=== PATIENT | female | born 1945 | race Hispanic/Latino ===

== ENCOUNTER → 2024-11-04 | Outpatient (CLI) | payer OTHER ==
[~2024-11-04] MED LIST: GADOTERATE MEGLUMINE 5 MMOL/10 ML VIAL IV ONE
--- NOTE | 2024-11-04 10:49 | HMCIMG ---
Exam Type: MRI of the pelvis with and without gadolinium Technique: Examination is done with multiecho multiplanar sequences, with and without fat saturation, before and after contrast administration. Findings: There is a mass arising from the rectum predominantly the right wall, with a cephalocaudal span of 5.7 cm with a maximum thickness of approximately 3 cm. The mass has circumferential involvement of the rectum and the entire involved area of rectal wall measures at least [address] No lymphadenopathy is seen. No additional masses are identified. There is no evidence of metastatic disease to the skeletal structures there are no other significant soft tissue abnormalities. IMPRESSION: Rectal mass as noted.
--- NOTE | 2024-11-04 11:01 | HMCIMG ---
THYROID ULTRASOUND History: Lymph nodes Comparison: None Findings: Multiple bilateral nodules are seen. Right thyroid lobe shows hypoechoic nodules of the upper pole measuring 8, 9 and 5 mm, as well as 2 hypoechoic interpolar nodules measuring 3 and 10 mm respectively. Multiple simple cysts of the upper aspect of the right lobe and the left lobe are seen. The left side shows hypoechoic upper pole nodules measuring 5, 7, and 14 x 18 mm respectively as well as a nodule of the lower pole measuring 7 mm. Normal appearing lymph node right side of the neck is noted. IMPRESSION: Multiple probably benign nodules. Consider one-year follow-up ultrasound.
== END | disposition home or self-care (01) ==
LOC: RAH 08:58
PROVIDERS: ATTEND Surgery
DX: C20 Malignant neoplasm of rectum (principal); E04.2 Nontoxic multinodular goiter; K62.89 Other specified diseases of anus and rectum
CPT/HCPCS: 72197; 76536; A9575